=== PATIENT | male | born 1970 | race Caucasian/White ===

== ENCOUNTER → 2016-08-21 | Outpatient (CLI) | payer OTHER ==
[~2016-08-21] VITALS: Ht 177.8 cm; Wt 90.7 kg
[~2016-08-21] MED LIST: CARISOPRODOL 3350 MG PO; PERCOCET 10-321 EACH PO
--- NOTE | ~2016-08-21 | HPC ---
[facility] [place] [address] PAIN MANAGEMENT CONSULTATION Name: JHONATAN FRIEDMAN Varun Room #: REG Shira Taylor#: [id number] Admission: 08/21/16 Attend Phys: Bar Rubin DO Discharge: Date of : 70 Report #: [id number] THIS REPORT FOR: //name// CC: Marychuy Wolfe DO Bar Rubin DATE OF SERVICE: 08/21/2016 HISTORY OF PRESENT ILLNESS: The patient is an unfortunate 45-year-old gentleman, seen in consultation at the request of Dr. Wolfe for assistance with management of chronic back and left hip pain. The patient notes the pain began some 25 plus years ago. He fell off of a fence striking his left hip. He has had ongoing pain off and on since. He notes that he has been treated with opiate analgesics for multiple years, has been taking Percocet 10/325 four a day (40 mg of oxycodone equivalent to 60 mg of morphine daily). He notes with this he still has pain that he rates anywhere from 6-10 on a 0-10 visual analog scale. He has pain in the low back, left leg, and into the anterior groin, posterior leg with paresthesia below the knee. He denies bowel or bladder continence changes, nor saddle anesthesia, but does have weakness and paresthesia in the left leg. He describes continuous rhythmic, burning, shooting, pulling, gnawing, throbbing, sharp, stabbing, and tender pain. Notes the pain is exacerbated with bending, coughing and sneezing, some relief with heat and opiate analgesics. He also uses carisoprodol 350 mg three a day. The patient states that epidural injections in the past with only transient relief (days' relief). He has had multiple MRIs. Most recent appears to be within the past year. He states he did fall on 07/23/2016. States he tripped at [employer] striking his left hip. Apparently, he presented to the [facility], had another MRI there, unfortunately that result is not available. Most interestingly, the patient states he has been seen in consultation by 2 neurosurgeons, Dr. Hess and Dr. Fletcher, on two individual occasions, both suggested decompressive laminectomies. I do have Dr. Fletcher's report, suggesting decompressive laminectomy at L3-L4 and L4-L5 with "generous" foraminotomies at these levels. REVIEW OF SYSTEMS: Complete review of systems was attached to the chart and was gone over with the patient. He is single. He has smoked for 20 years, down to half a pack a day. History of hepatitis C, recently diagnosed. Denies any other medical issues. States he has been disabled, on SSI since 2006, though the patient is not clear what specifically his exact disability was that enabled him to receive his SSI payments. States his pain impact score is quite high, averaging about 64/70. [address] [address] PAIN MANAGEMENT CONSULTATION Name: JHONATAN FRIEDMAN Room #: REG RICKIE Taylor#: [id number] Admission: 08/21/16 Attend Phys: Bar Rubin DO Discharge: Date of : 70 Report #: [id number] PHYSICAL EXAMINATION: GENERAL: Reveals a 5 feet 10 inch, 200-pound gentleman, BMI is 28.7 kg per meter squared. VITAL SIGNS: Blood pressure 144/91, pulse 91, respirations 20, room air oxygen saturation is 90%. NEUROLOGIC: Cranial nerves 2-12 are grossly intact. HEENT: Pupils are equal, round, and reactive to light and accommodation. Extraocular muscles are intact. NECK: Cervical range of motion is full. Thyroid is enlarged, little bit nodular. Upper extremity strength is symmetric. Cervical flexion exacerbates back and left leg pain. HEART: Regular and rhythmical without murmur. LUNGS: Generally clear. ABDOMEN: Benign. MUSCULOSKELETAL: Rises from the chair using armrest, markedly antalgic gait, uses a cane in his right hand, favoring the left leg. Objective strength in the right leg is good 5/5 to all muscle groups tested. In left leg, she has diminished strength, though difficult to tell if this is effort related. Dorsiflexion, lower extremity extension, and hip flexion range is about 2-3/5. Patellar reflexes are symmetric 0-1/4. Achilles reflex is absent on the right, 1/4 on the left. Straight leg raise is grossly positive at 30 degrees on the left. Skin integument is generally intact. Diffuse tenderness across the low back. No discrete trigger points are noted. Again, multiple diagnostic studies, most recent that we have from 2016. It is referred to Dr. Fletcher's 12/16/2015 consultation, noting significant stenosis at L3-L4 and L4-L5. At that time, the patient was referred for Neurosurgery. The patient states he has elected not to have surgery as he knows an individual who had surgery and was in a wheelchair. I had a long discussion with the patient today about therapeutic options. RECOMMENDATIONS: 1. Mandate smoking cessation. There is a large body of clinical evidence based data, correlating axial back pain with nicotine habituation. It also puts him at a poor risk for good wound healing postoperatively. 2. I strongly recommend he follow up with either of the two neurosurgeons he has seen or I took the liberty of giving him Neurosurgery recommendations at [facility], [facility], and [facility]. Discussed at length concern for chronic use of short acting opiates for surgically correctable pathology. He is becoming more and more disabled. While [facility] [address] [place] [address] PAIN MANAGEMENT CONSULTATION Name: JHONATAN FRIEDMAN Room #: REG RICKIE Salmon.#: [id number] Admission: 08/21/16 Attend Phys: Bar Rubin DO Discharge: Date of : 70 Report #: [id number] his fear of avoiding surgery for being "in a wheelchair", could be invalid, it is statistically not likely. He has a much greater statistical likelihood of "ending up in a wheelchair" without surgery. I cannot condone continuing short-acting opiates for a surgically correctable pathology. I strongly recommend that the patient follow up with Neurosurgery for definitive intervention. Again, as far as carisoprodol use, this agent is typically metabolize to meprobamate a very habituating central acting agent, which does result in some sedation. If he requires muscle relaxant, baclofen may be a better agent. I recommend nonsteroidal anti-inflammatory medication presently, as he has no direct contraindication (no history of coronary artery disease, diagnosed renal pathology or gastroesophageal reflux). Thank you for allowing me to participate in the patient's care, unfortunately I cannot condone continuing short acting opiates for a gentleman with well-defined surgical pathology and likely surgically correctable pain generator. Regarding repeating epidural injections, the patient states he has had them in the past, with only transient efficacy. 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 The patient did express anger that he was not being offered what he felt was appropriate opioid prescriptions. He stated "I'm going on line and will give Dr Rubin a very bad rating". No follow up appointments were made. <ELECTRONICALLY SIGNED> By: Bar Rubin DO 08/24/16 [id number] Bar Rbuin DO /nt
[2016-08-21 11:02] VITALS: BP 144/91
== END | disposition home or self-care (01) ==
LOC: PAIN 08-10 06:14
DX: M54.5 Low back pain (principal); M25.552 Pain in left hip; G89.29 Other chronic pain; F11.20 Opioid dependence, uncomplicated; B19.20 Unspecified viral hepatitis C without hepatic coma; F17.210 Nicotine dependence, cigarettes, uncomplicated; F32.89 Other specified depressive episodes; Z98.890 Other specified postprocedural states

== ENCOUNTER 2018-09-12 19:27 | Emergency (ER) | payer OTHER ==
[~2018-09-12] VITALS: Ht 177.8 cm; Wt 70.3 kg
[2018-09-12 21:23] LABS: ABSOLUTE NEUTROPHILS 7.7 thou/uL (1.4-8.2); BASOPHILS 0.5 % (0.0-2.0); EOSINOPHILS 0.7 % (0.0-3.0); HEMATOCRIT 38.7 % (42.0-52.0); HEMOGLOBIN 13.1 gm/dL (14.0-18.0); LYMPHOCYTES 18.4 % (24.0-44.0); MCH 30.2 pg (26.0-34.0); MCHC 33.9 g/dL (28.0-37.0); MCV 89.1 fL (80.0-100.0); PLATELET COUNT 243 thou/uL (150-400); POLYS 74.4 % (36.0-66.0); RBC 4.34 mil/uL (4.50-6.00); RDW 13.6 % (10.5-14.5); WBC 10.4 thou/uL (4.0-11.0)
[2018-09-12 21:30] LABS: CALCIUM 8.6 mg/dL (8.5-10.1); CREATININE 1.2 mg/dL (0.7-1.3); POTASSIUM 4.1 mmol/L (3.5-5.1)
[2018-09-12 21:58] LABS: URINE BILIRUBIN NEGATIVE (Negative); URINE BLOOD NEGATIVE (Negative); URINE CLARITY CLEAR; URINE GLUCOSE-RANDOM* NEGATIVE (Negative); URINE KETONES NEGATIVE (Negative); URINE LEUKOCYTES-REFLEX NEGATIVE (Negative); URINE NITRITE-REFLEX NEGATIVE (Negative); URINE PROTEIN (DIPSTICK) TRACE (Negative); URINE SPECIFIC GRAVITY >= 1.030 (1.005-1.035)
[2018-09-12 21:59] LABS: URINE COLOR YELLOW
[2018-09-12 22:19] LABS: AMP/METHAMP POSITIVE (Negative); BARBITURATES Negative (Negative); BENZODIAZEPINES Negative (Negative); COCAINE Negative (Negative); METHADONE Negative (Negative); OPIATES Negative (Negative); PCP Negative (Negative)
[2018-09-13 00:19] VITALS: BP 135/86
== END 2018-09-13 00:20 | disposition home or self-care (01) ==
LOC: ER 19:27
PROVIDERS: Emergency Medicine
DX: S51.812A Laceration without foreign body of left forearm, initial encounter (principal); F17.210 Nicotine dependence, cigarettes, uncomplicated; Y04.2XXA Assault by strike against or bumped into by another person, initial encounter; Y93.89 Activity, other specified; Y92.89 Other specified places as the place of occurrence of the external cause; Y99.8 Other external cause status